=== PATIENT | male | born 1945 | race Caucasian/White ===

== ENCOUNTER 2017-08-15 02:38 | Inpatient (IN) | payer OTHER ==
[~2017-08-15] VITALS: Ht 180.3 cm; Wt 84.8 kg
[~2017-08-15 02:38] MED LIST: 8 HOUR650 MG PO; ASPIR 8181 MG PO; ASPIRIN EC81 M1 PO; COZAAR 100MG T100 MG PO; FLOMAX(MONOGRA0.4 MG PO; FLOMAX0.4 M1 PO; INCRUSE ELLI62.5 MCG INH; LEVOTHROID0.088 MG PO; LEVOTHYROXINE100 MC1 PO; LEVOTHYROXINE88 MCG PO; LOSARTAN POTAS100 M1 PO; METOPROLOL SUCC25 M1 PO; METOPROLOL SUCC25 MG PO; PERCOCET 325 MG1 TA2 PO; PRAVASTATIN SOD20 M2 PO; PRAVASTATIN20 MG PO; TUDORZA PR400 MCG/Ac INH; TYLENOL XSTR500 MG PO
--- NOTE | 2017-08-15 14:56 | Operative Report ---
Operative/Inv Procedure Report Surgery Date: 08/15/17 Name of Procedure: 1. Laparoscopic reversal of colostomy with partial colectomy 2. Laparoscopic mobilization of splenic flexure 3. Laparoscopic partial proctectomy 4. Rigid proctosigmoidoscopy for evaluation of anastomotic integrity Pre-Operative Diagnosis: Status post Martínez's procedure for perforated diverticulitis Post-Operative Diagnosis: Same Estimated Blood Loss: less than 50ml Surgeon/Marble Machine Tender: Dionte Gonzalez Jr., DO Anesthesia: general endotracheal tube, block Monitors: Per routine Implants: None Drains: ELSY drain in subcutaneous space at old colostomy site Specimens: 1. Colostomy 2. Stapled doughnuts 3. Portion of rectum Complications: None Condition: Good Operative Indication: This is a 71-year-old gentleman who is status post Martínez's procedure for perforated diverticulitis he is now completely recovered and presents for reversal of his colostomy Operative/Procedure Note Note: On the day before the patient's operation he did develop up at home including oral antibiotics and oral laxatives. He presented to [facility] where he was given oral and direct in the holding area. Was taken into the operating room given IV antibiotics and placed in supine position on the operating table. He underwent induction of general anesthesia and placement of endotracheal tube as well as a Hackett catheter. The anesthesia department did bilateral tap blocks The patient was converted to lithotomy position in Tate stirrups with the right arm tucked. The abdomen and perineum were prepped and draped in usual fashion. We used a Scott technique to enter the abdominal cavity. The Scott port was placed in the right upper quadrant, as I divided the external rectus fascia to purple 0 Vicryl tacking sutures were placed on either side of the incision. Then as I divided the peritoneum underneath regular 2-0 Vicryl was placed to tack both sides of the tissue. The port was placed. Patient had abundant adhesions of the small bowel to the midline and into the pelvis as well inter loop adhesions. A very lateral 5 millimeter port was placed on the right side. A 5 mm right lower quadrant port was placed. Next lysis of adhesions was performed for about the next hour all the midline adhesions between the bowel and the fascia were taken down and all the adhesions between the bowel in the pelvis were taken down. Next a 12 mm port was placed in the superior umbilical position and another 5 mm port was placed in the subxiphoid position. It appeared to me that the bowel would not reach the pelvis as this was a fairly high colostomy so the white line of Toldt was taken down and the splenic flexure was completely taken down laparoscopically using a combination of blunt dissection and vessel sealer. Once all this dissection had been completed the mode peritoneum was left down. Elliptical incision was performed around the colostomy and I dissected until it bowel was completely freed from the fascia. The distal 2 cm of the colon was then amputated by first clearing the mesentery with electrocautery and LigaSure device. I sharply divided the bowel and the specimen was removed from the field. Next the handsewn pursestring was performed with 2-0 Prolene. A 28 EEA stapler was chosen for the anastomosis. The anvil was placed into the lumen of the bowel and the pursestring was tied snugly around the PEG of the anvil. The bowel was reduced back into the abdominal cavity. The fascia was closed with 0 PDS suture and we reestablished pneumoperitoneum. Now the bowel could easily reach into the pelvis. We attempted to pass the sizers transanally but they could not reach the end of the pouch at the proximal portion of the pouch and become contracted and tethered in the pelvis. I tried to open the lumen by doing rigid sigmoidoscopy but this did not help. At this point I decided to mobilize and resect the upper portion of the rectum. Using the LigaSure I developed the posterior avascular plane of the rectum starting at the apex of the rectal pouch divided the rectal stalks both to the right to the left until I reached the area of desired transection. Mesentery was then cleared with the LigaSure. A laparoscopic SULMA purple 60 mm stapler was then used to divide the bowel. The specimen was set aside in the right lower quadrant. Next we will to easily pass the stapler to the end of the pouch the spike was advanced through the rectal wall. The 2 ends of the stapler were laparoscopically mated. The stapler was completely closed and allowed to settle for 30 seconds. The stapler was fired opened and retrieved. Next we filled the pelvis with sterile water occluded the colon above the anastomosis. I did a rigid sigmoidoscopy there was no leaking of bubbles at the anastomosis the anastomosis appeared sound without bleeding. At this point we inspected the abdominal cavity one last time for hemostasis everything appeared okay. A upper scopic Endo retrieval bag was placed through the supraumbilical 12 mm port. The rectal specimen was placed into this bag. The pneumoperitoneum was let down and this incision was extended to about 2 cm. We were able to extract bag with the specimen. Next the fascia at this incision was closed with 0 Vicryl suture. The Scott port in the right lower quadrant was closed in 2 layers. The inner layer was closed running 2-0 Vicryl. The outer fascia was closed with a figure of 8-0 Vicryl. All the lap scopic ports were then closed with subcuticular 4 Monocryl and skin glue. The colostomy site was pulse lavaged with 1 L sterile saline. A ELSY drain was placed into the base of the incision outside the fascia but under the skin. And the drain was brought out through separate stab incision. The drain was secured to the skin with a nylon suture. Skin was then closed with mattress nylon sutures. A sterile dressing was applied over this incision. At this point the procedure was concluded the patient was converted back to supine position. The patient tolerated the procedure well was exiting operating room and taken recovery in good condition. At the end of this operational needle sponges and measurements were accounted for. Discharge Disposition: Same Day Admissions
[2017-08-15 16:36] VITALS: BP 130/70
--- NOTE | 2017-08-15 18:15 | PN- General Surgery ---
Subjective Subjective: POST-OP NOTE Reports some dizziness. Not yet out of bed. Pain controlled after receiving iv dilaudid in pacu. He is ordered for clears as tolerated. Denies nausea. No shortness of breath. No chest pains. Objective Vital Signs and I&Os Vital Signs Date Time Temp Pulse Resp B/P B/P Pulse O2 O2 Flow FiO2 Mean Ox Delivery Rate 08/15 1636 97.6 66 18 130/70 93 Room Air Physical Exam: General - alert & oriented x 3. comfortable. no acute distress. Lungs - clear bilaterally. no w/r/r. Cardiac - s1s2. reg. Abdomen - soft. incisions approximated with skin glue. ELSY drain with serosang drainage. - stephen draining clear, yellow urine Extremities - warm bilaterally. no c/c/e. calves soft and nontender b/l. athrombics active. Current Medications: Current Medications Sig/Rachel Start time Last Medication Dose Route Stop Time Status Admin Acetaminophen 1,000 MG Q6H 08/15 1815 AC N/A 1 UNIT IV 08/16 1229 Acetaminophen 650 MG Q6P PRN 08/15 1645 DC PO Alvimopan 12 MG BID 08/15 2200 AC PO Alvimopan 12 MG ONCE 08/15 0000 DC PO 08/15 2359 Cefazolin Sodium 2 GM IQ8 08/15 1600 AC 08/15 N/A 1 UNIT IV 08/16 1559 1801 Dextrose/Sodium 1,000 ML Q13H 08/15 1645 AC 08/15 Chloride IV 1750 Fentanyl Citrate 250 MCG .STK-MED ONE 08/15 0955 DC IM 08/15 0956 Heparin Sodium 5,000 UNIT Q8 08/15 2200 AC (Porcine) SC Hydromorphone HCl 0.5 MG Q3P PRN 08/15 1645 AC IV Ketorolac 15 MG Q6-PRN PRN 08/15 1815 AC Tromethamine IV Levothyroxine Sodium 0.1 MG DAILY AC 08/16 0700 AC PO Losartan Potassium 100 MG DAILY 08/16 1000 AC PO Metoprolol Succinate 25 MG DAILY 08/16 1000 AC PO Metronidazole 500 MG IQ8 08/15 1600 AC N/A 1 UNIT IV 08/16 0059 Midazolam HCl 2 MG .STK-MED ONE 08/15 0956 DC IM 08/15 0957 Ondansetron HCl 4 MG Q6P PRN 08/15 1645 AC IV Oxycodone HCl 5 MG Q4 PRN 08/15 1515 AC PO Oxycodone HCl 10 MG Q4 PRN 08/15 1515 AC PO Pravastatin Sodium 10 MG DAILY 08/16 1000 AC PO Tamsulosin HCl 0.8 MG QPM 08/15 2200 AC PO Tiotropium [place] 1 PUF DAILY 08/16 1000 AC INH Assessment/Plan Assessment/Plan This 71 year old male with hx hypothyroidism, htn, hld, bph, copd, now POD#0 s/p laparoscopic reversal of colostomy with partial colectomy, laparoscopic mobilization of splenic flexure, laparoscopic partial proctectomy, and rigid proctosigmoidoscopy for evaluation of anastomotic integrity, for hx of hartmans procedure for perforated diverticulitis clears as tolerated iv tylenol / iv toradol prn pain control / iv dilaudid prn breakthrough pain entereg bid hep sc - dvt ppx delphine-operative abx d/c stephen in am f/u am labs TRC/IS monitor ELSY drain oob/ambulation home meds ordered will d/w Core Measures Venous Thromboembolism VTE Risk Factors Surgery No Mechanical VTE Prophylaxis d/t N/A MechProphylax Ordered No VTE Pharm Prophylaxis d/t NA PharmProphylax ordered
[2017-08-15 22:08] VITALS: BP 126/68
[2017-08-16 02:05] VITALS: BP 130/60
[2017-08-16 06:54] VITALS: BP 120/56
[2017-08-16 08:39] LABS: ABSOLUTE BASOPHIL COUNT 0 /CUMM (0.0-0.2); ABSOLUTE EOSINOPHIL COUNT 0 /CUMM (0.0-0.7); ABSOLUTE LYMPH COUNT 1.3 /CUMM (1.2-3.4); ABSOLUTE MONOCYTE COUNT 1.1 /CUMM (0.10-0.60); BASOPHIL % 0.2 % (0.0-2.0); EOSINOPHIL % 0 % (0-5); GRANULOCYTE % 78.3 % (42.2-75.2); HEMATOCRIT 31.2 % (42-52); MEAN CORPUSCULAR HGB 30.6 PG (27.0-31.0); MEAN CORPUSCULAR HGB CONC 34.5 G/DL (33.0-37.0); MEAN CORPUSCULAR VOLUME 88.8 FL (80.0-94.0); MEAN PLATELET VOLUME 8.4 FL (7.4-10.4); PLATELET COUNT 200 /CUMM (130-400); RBC DISTRIBUTION WIDTH 13.8 % (11.5-14.5); RED BLOOD CELL CT 3.52 /CUMM (4.70-6.10); WHITE BLOOD CELL COUNT 11.5 /CUMM (4.8-10.8)
--- NOTE | 2017-08-16 09:56 | PN- General Surgery ---
See Addendum Subjective Subjective: some abdominal pain, helped w meds. liliane clears but easily feels full. no n/v. no flatus, no bm. no cp/sob. no oob yet. +uo via stephen. Objective Vital Signs and I&Os Vital Signs Date Time Temp Pulse Resp B/P B/P Pulse O2 O2 Flow FiO2 Mean Ox Delivery Rate 08/16 0940 64 114/58 08/16 0939 64 114/58 08/16 0654 97.5 72 20 120/56 94 Room Air 08/16 0600 94 Room Air 08/16 0205 97.7 70 16 130/60 94 Room Air 08/16 0000 93 Room Air 08/15 2208 98.4 70 20 126/68 93 08/15 2200 Room Air 08/15 2036 75 120/60 08/15 1636 97.6 66 18 130/70 93 Room Air Intake & Output 08/16 1600 08/16 0800 08/16 0000 08/15 1600 08/15 0800 08/15 0000 Intake Total 850 1150 Output Total 1280 405 Balance -430 745 Intake, IV 750 450 Intake, Oral 100 700 Number 0 Bowel Movements Output, 5 5 Drainage Output, Urine 1275 400 Patient 188 lb Weight Weight Reported by Patient Measurement Method Physical Exam: gen- nad card- s1s2 rrr pulm- ctab abd- distended, ttp throughout, incisions dressed- cdi. nigel with minimal serosang output (5cc per shift), tubing patent. quiet bs ext- calves soft nt, alps on. uro- stephen w clear yellow urine Current Medications: Current Medications Sig/Rachel Start time Last Medication Dose Route Stop Time Status Admin Acetaminophen 1,000 MG Q6H 08/15 1815 AC 08/16 N/A 1 UNIT IV 08/16 1229 0601 Acetaminophen 650 MG Q6P PRN 08/15 1645 DC PO Alvimopan 12 MG BID 08/15 2200 AC 08/16 PO 0939 Alvimopan 12 MG ONCE 08/15 0000 DC PO 08/15 2359 Cefazolin Sodium 2 GM Q8H 08/16 0200 AC 08/16 N/A 1 UNIT IV 08/16 1029 0939 Cefazolin Sodium 2 GM IQ8 08/15 1600 DC 08/15 N/A 1 UNIT IV 08/16 1559 1801 Dextrose/Sodium 1,000 ML Q13H 08/15 1645 AC 08/16 Chloride IV 0800 Fentanyl Citrate 250 MCG .STK-MED ONE 08/15 0955 DC IM 08/15 0956 Heparin Sodium 5,000 UNIT Q8 08/15 2200 AC 08/16 (Porcine) SC 0614 Hydromorphone HCl 0.5 MG Q3P PRN 08/15 1645 AC IV Ketorolac 15 MG Q6-PRN PRN 08/15 1815 AC 08/16 Tromethamine IV 0939 Levothyroxine Sodium 0.1 MG DAILY AC 08/16 0700 AC 08/16 PO 0614 Losartan Potassium 100 MG DAILY 08/16 1000 AC 08/16 PO 0940 Metoprolol Succinate 25 MG DAILY 08/16 1000 AC 08/16 PO 0939 Metronidazole 500 MG Q8H 08/16 0300 DC 08/16 N/A 1 UNIT IV 08/16 0359 0345 Metronidazole 500 MG IQ8 08/15 1600 DC 08/15 N/A 1 UNIT IV 08/16 0059 1900 Midazolam HCl 2 MG .STK-MED ONE 08/15 0956 DC IM 08/15 0957 Ondansetron HCl 4 MG Q6P PRN 08/15 1645 AC IV Oxycodone HCl 5 MG Q4 PRN 08/15 1515 AC PO Oxycodone HCl 10 MG Q4 PRN 08/15 1515 AC PO Pravastatin Sodium 10 MG DAILY 08/16 1000 AC 08/16 PO 0940 Tamsulosin HCl 0.8 MG QPM 08/15 2200 AC 08/15 PO 2036 Tiotropium [place] 1 PUF DAILY 08/16 1000 AC 08/16 INH 0940 Results Last 48 Hours of Labs: Laboratory Tests 08/16 07 Chemistry Sodium (137 - 145 mmol/L) 139 Potassium (3.5 - 5.1 mmol/L) 3.9 Chloride (98 - 107 mmol/L) 104 Carbon Dioxide (22 - 30 mmol/L) 26 Anion Gap (5 - 16) 9 BUN (9 - 20 mg/dL) 13 Creatinine (0.7 - 1.2 mg/dL) 0.9 Estimated GFR (>60 ml/min) > 60 BUN/Creatinine Ratio (7 - 25 %) 14.4 Hematology CBC w Diff NO MAN DIFF REQ WBC (4.8 - 10.8 /CUMM) 11.5 H RBC (4.70 - 6.10 /CUMM) 3.52 L Hgb (14.0 - 18.0 G/DL) 10.8 L Hct (42 - 52 %) 31.2 L MCV (80.0 - 94.0 FL) 88.8 MCH (27.0 - 31.0 PG) 30.6 MCHC (33.0 - 37.0 G/DL) 34.5 RDW (11.5 - 14.5 %) 13.8 Plt Count (130 - 400 /CUMM) 200 MPV (7.4 - 10.4 FL) 8.4 Gran % (42.2 - 75.2 %) 78.3 H Lymphocytes % (20.5 - 51.1 %) 11.7 L Monocytes % (1.7 - 9.3 %) 9.8 H Eosinophils % (0 - 5 %) 0 Basophils % (0.0 - 2.0 %) 0.2 Absolute Granulocytes (1.4 - 6.5 /CUMM) 9.0 H Absolute Lymphocytes (1.2 - 3.4 /CUMM) 1.3 Absolute Monocytes (0.10 - 0.60 /CUMM) 1.1 H Absolute Eosinophils (0.0 - 0.7 /CUMM) 0 Absolute Basophils (0.0 - 0.2 /CUMM) 0 Assessment/Plan Assessment/Plan A- 71M POD1 sp colostomy reversal ( sp hartmanns for diverticulitis), with postop pain and no bowel function, otherwise stable. P- oob to chair, ambulate as tolerated. ist hep sq, alps prn pain meds clear liquids as tolerated, await bowel fxn cont ivf dc stephen now, cont flomax cont entereg until bm postop abx x23hr nigel to self suction will dw attending Core Measures Venous Thromboembolism VTE Risk Factors Surgery No Mechanical VTE Prophylaxis d/t N/A MechProphylax Ordered No VTE Pharm Prophylaxis d/t NA PharmProphylax ordered
[2017-08-16 12:00] VITALS: BP 118/62
[2017-08-16 22:01] VITALS: BP 150/60
--- NOTE | 2017-08-17 06:36 | Patient Discharge Instructions ---
Discharge Instructions General Discharge Information You were seen/treated for: s/p Martínez's procedure for perforated diverticulitis You had these procedures: Surgery Date: 08/15/17 Name of Procedure: 1. Laparoscopic reversal of colostomy with partial colectomy 2. Laparoscopic mobilization of splenic flexure 3. Laparoscopic partial proctectomy 4. Rigid proctosigmoidoscopy for evaluation of anastomotic integrity Watch for these problems: fever>101.3, increased pain, redness/swelling/drainage, dizziness, shortness of breath, chest pains No bath, but you may shower: Yes Diet Continue normal diet: Yes Recommended Diet: Low Residue Activity Full Activity/No Limits: No Activity Self Limited: Yes Pounds, do NOT lift more than: 10 Acute Coronary Syndrome Inclusion Criteria At DC or during hospital stay patient has or had the following: ACS DIAGNOSIS No Discharge Core Measures Meds if any: Prescribed or Continued at Discharge Meds if any: NOT Prescribed or Continued at Discharge Congestive Heart Failure Inclusion Criteria At DC or during hospital stay patient has or had the following: CHF DIAGNOSIS No Discharge Core Measures Meds if any: Prescribed or Continued at Discharge Meds if any: NOT Prescribed or Continued at Discharge Cerebrovascular accident Inclusion Criteria At DC or during hospital stay patient has or had the following: CVA/TIA Diagnosis No Discharge Core Measures Meds if any: Prescribed or Continued at Discharge Meds if any: NOT Prescribed or Continued at Discharge Venous thromboembolism Inclusion Criteria VTE Diagnosis No VTE Type NONE VTE Confirmed by (Test) NONE Discharge Core Measures - Per Current guidelines, there needs to be overlap - treatment for the first 5 days of Warfarin therapy. - If discharged on Warfarin prior to 5 days of - overlap therapy, the patient will need to be - assessed for post discharge needs including - *Post discharge parental anticoagulation - *Warfarin and/or parental anticoagulation education - *Follow up date to check INR post discharge At least 5 days overlap therapy as Inpatient No Meds if any: Prescribed or Continued at Discharge Note: Overlap Therapy is Warfarin and Anticoagulant Meds if any: NOT Prescribed or Continued at Discharge
[2017-08-17] MEDS ORDERED: OXYCODONE HCL5 M1 PO (06:43)
[2017-08-17] MEDS ORDERED: COLACE100 M1 PO (06:43)
--- NOTE | 2017-08-17 06:54 | Surgical Discharge Summary ---
Visit Information Visit Dates Admission Date: 08/15/17 Discharge Date: 08/20/17 History of Present Illness Chief Complaint: s/p Martínez's procedure for perforated diverticulitis Medical History Blood Transfusion Hx: No Neurological: NONE EENT: NONE Cardiovascular: AFIB, HTN, HIGH CHOLESTERAL Respiratory: HX SPONTANEOUS PNEUMOTHORAX Gastrointestinal: GERD Hepatic: NONE Renal: NONE Musculoskeletal: NONE Psychiatric: NONE Endocrine: hypothyroidism Blood Disorders: NONE Cancer(s): NONE GUIDEMAN/Reproductive: NONE History of MRSA: No History of VRE: No History of CDIFF: No Isolation History: Standard Surgical History Pertinent Surgical History: HARTMANNS, COLOSTOMY AAA REPAIR BILATERAL SHOULDER SX Psychosocial History Who Do You Live With? Spouse Services at Home: None What is Your Primary Language? Greenlandic Review of Systems: see h&p Hospital Course Course Attending Physician: Dionte Gonzalez Jr., DO Primary Care Physician: Josefina GRIFFIN,Lds Hospital Course: Electively scheduled laparoscopic reversal of colostomy with partial colectomy, mobilization of splenic flexure, partial proctectomy, and rigid proctosigmoidoscopy for evaluation of anastomotic integrity on 08/15/17 by for history of s/p Martínez's procedure for perforated diverticulitis. Entereg was continued post-operatively to reduce narcotic related effects on bowel recovery. Pain medication transitioned from iv to oral. Diet advancement with return of bowel function, as tolerated. Activity and mobilization encouraged, as tolerated. ELSY drain left at the previous colostomy site left in place from surgery for continued drainage through hospitalization, with removal of this prior to discharge home. Complications: None Allergies: Coded Allergies: NO KNOWN ALLERGIES (02/08/15) Disposition Summary Disposition Principal Diagnosis: status post Martínez's procedure for perforated diverticulitis Additional Diagnosis: same as above, s/p Surgery Date: 08/15/17 Name of Procedure: 1. Laparoscopic reversal of colostomy with partial colectomy 2. Laparoscopic mobilization of splenic flexure 3. Laparoscopic partial proctectomy 4. Rigid proctosigmoidoscopy for evaluation of anastomotic integrity Discharge Disposition: home health services Discharge Instructions General Discharge Information Code Status: Full Code Patient's Diet: low residue diet, as tolerated Patient's Activity: as tolerated. no heavy lifting >10 lbs until further directed. Follow-Up Instructions/Appts: 7-[address]Aversa Medications at Discharge Discharge Medications: Continue taking these medications: Tamsulosin HCl (Flomax) 0.4 MG CAP.ER.24H 2 Capsule ORAL Every night Qty = 90 Acetaminophen (8 Hour) 650 MG TABLET.ER 2 Tablet ORAL TWICE DAILY Losartan Potassium (Losartan Potassium) 100 MG TABLET 1 Tablet ORAL DAILY Qty = 90 Pravastatin Sodium (Pravastatin Sodium) 20 MG TABLET 0.5 Tablet ORAL Every other day Qty = 45 Levothyroxine Sodium (Levothyroxine Sodium) 100 MCG TABLET 1 Tablet ORAL DAILY Metoprolol Succinate (Metoprolol Succinate) 25 MG TAB 1 Tablet ORAL DAILY Qty = 90 Umeclidinium [place] (Incruse Ellipta) 62.5 MCG/ACTUATION BLST.W.DEV 1 PUFF Inhale through mouth Every Morning Aspirin (Ecotrin*) 81 MG TABLET.DR 1 Tablet ORAL DAILY Start taking the following new medications: Oxycodone HCl (Oxycodone HCl) 5 MG TABLET 1-2 Tablet ORAL EVERY 4-6 HOURS NEEDED as needed for pain control Qty = 36 No Refills Instructions: tylenol may be used in combination or alternatively Docusate Sodium (Colace) 100 MG CAPSULE 1 Capsule ORAL TWICE DAILY as needed for stool softener Qty = 60 No Refills Copies To: Josefina GRIFFIN,Dru
[2017-08-17 07:06] VITALS: BP 170/86
[2017-08-17 08:18] LABS: ABSOLUTE BASOPHIL COUNT 0 /CUMM (0.0-0.2); ABSOLUTE EOSINOPHIL COUNT 0 /CUMM (0.0-0.7); ABSOLUTE GRANULOCYTE CT 7.2 /CUMM (1.4-6.5); ABSOLUTE LYMPH COUNT 1.1 /CUMM (1.2-3.4); ABSOLUTE MONOCYTE COUNT 0.5 /CUMM (0.10-0.60); BASOPHIL % 0.2 % (0.0-2.0); EOSINOPHIL % 0.4 % (0-5); GRANULOCYTE % 80.9 % (42.2-75.2); MEAN CORPUSCULAR HGB 29.9 PG (27.0-31.0); MEAN CORPUSCULAR HGB CONC 33.7 G/DL (33.0-37.0); MEAN CORPUSCULAR VOLUME 88.8 FL (80.0-94.0); PLATELET COUNT 204 /CUMM (130-400); RBC DISTRIBUTION WIDTH 13.6 % (11.5-14.5); WHITE BLOOD CELL COUNT 8.9 /CUMM (4.8-10.8)
--- NOTE | 2017-08-17 09:33 | PN- General Surgery ---
Subjective Subjective: Reports pain not always well controlled. Taking sips. No nausea. Some hiccuping. No flatus/bm yet. States he walked 3 times yesterday. No dizziness. No shortness of breath. No chest pains. Objective Vital Signs and I&Os Vital Signs Date Time Temp Pulse Resp B/P B/P Pulse O2 O2 Flow FiO2 Mean Ox Delivery Rate 08/17 0856 98.2 79 20 170/86 08/17 0856 98.2 79 20 170/86 18 0706 98.2 79 20 170/86 92 Room Air 08/17 0600 92 Room Air 08/17 0000 92 Room Air 08/16 2201 98.4 73 20 150/60 92 08/16 2200 Room Air 08/16 2106 72 150/60 08/16 1400 94 Room Air 08/16 1200 97.8 69 18 118/62 94 Room Air Intake & Output 08/17 1600 08/17 0800 08/17 0000 08/16 1600 08/16 0800 08/16 0000 Intake Total 650 1400 0818 477 3531 Output Total 1185 2673 749 3467 405 Balance -535 45 730 -430 745 Intake, IV 600 600 600 750 450 Intake, Oral 50 800 480 100 700 Number 0 0 0 Bowel Movements Output, 10 5 5 5 Drainage Output, Urine 1175 8490 563 8971 400 Patient 188 lb Weight Weight Reported by Patient Measurement Method Physical Exam: General - alert & oriented. comfortable. no acute distress. Lungs - clear bilaterally. no w/r/r. Cardiac - s1s2. reg. Abdomen - softly distended. delphine-incisional tenderness. ELYS drain with serous drainage. Extremities - warm bilaterally. no c/c/e. calves soft and nontender b/l Current Medications: Current Medications Sig/Rachel Start time Last Medication Dose Route Stop Time Status Admin Acetaminophen 1,000 MG Q6H 08/15 1815 MI 08/16 N/A 1 UNIT IV 08/16 1229 0601 Alvimopan 12 MG BID 08/15 220 08/17 PO 0856 Cefazolin Sodium 2 GM Q8H 08/16 0200 MI 08/16 N/A 1 UNIT IV 08/16 1029 0939 Dextrose/Sodium 1,000 ML Q13H 08/15 1645 08/16 Chloride IV 2106 Heparin Sodium 5,000 UNIT Q8 08/15 2200 AC 08/17 (Porcine) SC 0614 Hydromorphone HCl 1 MG Q3 PRN 08/17 0932 AC IV Hydromorphone HCl 0.5 MG Q3P PRN 08/15 1645 DC 08/17 IV 0811 Ketorolac 15 MG .STK-MED ONE 08/16 1558 DC Tromethamine IM 08/16 1559 Ketorolac 15 MG Q6-PRN PRN 08/15 1815 AC 08/17 Tromethamine IV 0806 Levothyroxine Sodium 0.1 MG DAILY AC 08/16 0700 AC 08/17 PO 0613 Losartan Potassium 100 MG DAILY 08/16 1000 AC 08/17 PO 0856 Metoprolol Succinate 25 MG DAILY 08/16 1000 AC 08/17 PO 0856 Ondansetron HCl 4 MG Q6P PRN 08/15 1645 AC IV Oxycodone HCl 5 MG Q4 PRN 08/15 1515 AC PO Oxycodone HCl 10 MG Q4 PRN 08/15 1515 AC 08/16 PO 2109 Pravastatin Sodium 10 MG DAILY 08/16 1000 AC 08/17 PO 0856 Tamsulosin HCl 0.8 MG QPM 08/15 2200 AC 08/16 PO 2106 Tiotropium [place] 1 PUF DAILY 08/16 1000 AC 08/17 INH 0857 Results Last 48 Hours of Labs: Laboratory Tests 08/17 08/16 0745 0717 Chemistry Sodium (137 - 145 mmol/L) 139 139 Potassium (3.5 - 5.1 mmol/L) 4.0 3.9 Chloride (98 - 107 mmol/L) 100 104 Carbon Dioxide (22 - 30 mmol/L) 29 26 Anion Gap (5 - 16) 10 9 BUN (9 - 20 mg/dL) 10 13 Creatinine (0.7 - 1.2 mg/dL) 0.8 0.9 Estimated GFR (>60 ml/min) > 60 > 60 BUN/Creatinine Ratio (7 - 25 %) 12.5 14.4 Phosphorus (2.5 - 4.5 mg/dL) 3.2 Magnesium (1.6 - 2.3 mg/dL) 1.6 Hematology CBC w Diff NO MAN DIFF REQ NO MAN DIFF REQ WBC (4.8 - 10.8 /CUMM) 8.9 11.5 H RBC (4.70 - 6.10 /CUMM) 3.60 L 3.52 L Hgb (14.0 - 18.0 G/DL) 10.8 L 10.8 L Hct (42 - 52 %) 32.0 L 31.2 L MCV (80.0 - 94.0 FL) 88.8 88.8 MCH (27.0 - 31.0 PG) 29.9 30.6 MCHC (33.0 - 37.0 G/DL) 33.7 34.5 RDW (11.5 - 14.5 %) 13.6 13.8 Plt Count (130 - 400 /CUMM) 204 200 MPV (7.4 - 10.4 FL) 8.0 8.4 Gran % (42.2 - 75.2 %) 80.9 H 78.3 H Lymphocytes % (20.5 - 51.1 %) 12.4 L 11.7 L Monocytes % (1.7 - 9.3 %) 6.1 9.8 H Eosinophils % (0 - 5 %) 0.4 0 Basophils % (0.0 - 2.0 %) 0.2 0.2 Absolute Granulocytes (1.4 - 6.5 /CUMM) 7.2 H 9.0 H Absolute Lymphocytes (1.2 - 3.4 /CUMM) 1.1 L 1.3 Absolute Monocytes (0.10 - 0.60 /CUMM) 0.5 1.1 H Absolute Eosinophils (0.0 - 0.7 /CUMM) 0 0 Absolute Basophils (0.0 - 0.2 /CUMM) 0 0 Assessment/Plan Assessment/Plan This 71 year old male with hx hypothyroidism, htn, hld, bph, copd, now POD#2 s/p laparoscopic reversal of colostomy with partial colectomy, laparoscopic mobilization of splenic flexure, laparoscopic partial proctectomy, and rigid proctosigmoidoscopy for evaluation of anastomotic integrity, for hx of hartmans procedure for perforated diverticulitis clears as tolerated encouraged out of bed / ambulation will hold toradol for now (he had an episode of bleeding per rectum when out of bed this morning) continue hep sc - dvt ppx will increase iv dilaudid for breakthrough pain continue entereg f/u labs abdominal binder as desired for comfort ELSY drain in place d/w Core Measures Venous Thromboembolism VTE Risk Factors Surgery No Mechanical VTE Prophylaxis d/t N/A MechProphylax Ordered No VTE Pharm Prophylaxis d/t NA PharmProphylax ordered
[2017-08-17 09:52] VITALS: BP 152/90
--- NOTE | 2017-08-17 10:02 | PN- General Surgery ---
Surgical Brief Attending Note Brief Attending Note: Patient still with no flatus Pain his chief complaint no different than yesterday Had small amount of bright red blood dripping per anus this morning Remains AVSS Gen. distress Abdomen softly distended and tympanitic, incisions clean dry and intact, ELSY serous mild generalized tenderness no rebound Impression: Await bowel function Plan: Hold Toradol but continue subcutaneous heparin Continue IV fluids and clear liquid diet only Add Valium 3 times a day when necessary abdominal pain Repeat labs tomorrow morning
[2017-08-17 14:42] VITALS: BP 120/80
[2017-08-17 21:43] VITALS: BP 150/76
[2017-08-18 06:44] VITALS: BP 142/62
--- NOTE | 2017-08-18 07:21 | PN- General Surgery ---
Surgical Brief Attending Note Brief Attending Note: Pt states pain somewhat improved from yesterday Still no flatus or BM Patient remains AVSS Abdomen is softly distended Labs are pending Impression: Postoperative ileus Plan: Continue IV fluids Do not advance diet Ambulate
[2017-08-18 08:31] LABS: ABSOLUTE BASOPHIL COUNT 0 /CUMM (0.0-0.2); ABSOLUTE EOSINOPHIL COUNT 0.2 /CUMM (0.0-0.7); ABSOLUTE GRANULOCYTE CT 6.6 /CUMM (1.4-6.5); ABSOLUTE LYMPH COUNT 1.2 /CUMM (1.2-3.4); ABSOLUTE MONOCYTE COUNT 0.6 /CUMM (0.10-0.60); BASOPHIL % 0.3 % (0.0-2.0); EOSINOPHIL % 2.4 % (0-5); GRANULOCYTE % 76.6 % (42.2-75.2); HEMATOCRIT 31.6 % (42-52); MEAN CORPUSCULAR HGB 30.6 PG (27.0-31.0); MEAN CORPUSCULAR HGB CONC 34.4 G/DL (33.0-37.0); MEAN CORPUSCULAR VOLUME 89.1 FL (80.0-94.0); MEAN PLATELET VOLUME 8.3 FL (7.4-10.4); PLATELET COUNT 193 /CUMM (130-400); RBC DISTRIBUTION WIDTH 13.9 % (11.5-14.5); RED BLOOD CELL CT 3.55 /CUMM (4.70-6.10); WHITE BLOOD CELL COUNT 8.7 /CUMM (4.8-10.8)
--- NOTE | 2017-08-18 16:55 | Admission Core Measures ---
Acute Coronary Syndrome (CM) ACS Core Measures Acute Coronary Syndrome Diagnosis No Congestive Heart Failure (NEW) CHF Core Measures Congestive Heart Failure Diagnosis No Cerebrovascular Accident (NEW) CVA Core Measures CVA/TIA Diagnosis No Venous Thromboembolism VTE Core Himanshu (View Protocol) VTE Risk Factors Surgery No Mechanical VTE Prophylaxis d/t N/A MechProphylax Ordered No VTE Pharm Prophylaxis d/t NA PharmProphylax ordered Problem List As ranked by this Provider includes Assessment & Plan 1. Status post colostomy takedown HOME MEDS Home Med List Acetaminophen (8 Hour) 650 MG TABLET.ER 2 TAB PO BID PAIN (Reported) Aspirin (Ecotrin*) 81 MG TABLET.DR 1 TAB PO DAILY HEART/BLOOD (Reported) Docusate Sodium (Colace) 100 MG CAPSULE 1 CAP PO BID PRN stool softener Levothyroxine Sodium 100 MCG TABLET 1 TAB PO DAILY THYROID (Reported) Losartan Potassium 100 MG TABLET 1 TAB PO DAILY BP (Reported) Metoprolol Succinate 25 MG TAB 1 TAB PO DAILY HEART/BP (Reported) Oxycodone HCl 5 MG TABLET 1-2 TAB PO Q4-6 PRN PRN pain control Pravastatin Sodium 20 MG TABLET 0.5 TAB PO EOD CHOLESTEROL (Reported) Tamsulosin HCl (Flomax) 0.4 MG CAP.ER.24H 2 CAP PO QPM PROSTATE (Reported) Umeclidinium [place] (Incruse Ellipta) 62.5 MCG/ACTUATION BLST.W.DEV 1 PUFF INH QAM COPD (Reported)
[2017-08-18 22:50] VITALS: BP 152/80
[2017-08-19 07:34] VITALS: BP 160/78
--- NOTE | 2017-08-19 08:30 | PN- General Surgery ---
Subjective Subjective: Patient reports passing small amounts of flatus, that began approximately 12 hours ago. He states that he moved a very small amout of his bowels, "just a little piece". He denies blood per rectum, states that his previous episode has resolved. He denies nausea or vomitting. He denies chest pain. He states that he has COPD and feels occasional SOB but not a major variation from his baseline. He has been oob ambulating. He anticipates more ambulation after breakfast. Objective Vital Signs and I&Os Vital Signs Date Time Temp Pulse Resp B/P B/P Pulse O2 O2 Flow FiO2 Mean Ox Delivery Rate 08/19 0742 97.7 60 20 160/78 08/19 0742 97.7 60 20 160/78 08/19 0734 97.7 60 20 160/78 94 Room Air 08/19 0600 98 Room Air 08/18 2250 98.4 68 20 152/80 95 Room Air 08/18 2200 98 Room Air 08/18 2103 98.0 72 18 142/62 Intake & Output 08/19 1600 08/19 0800 08/19 0000 08/18 1600 08/18 0800 08/18 0000 Intake Total 803 808 4176 750 1300 Output Total 976 597 9188 730 205 Balance -210 400 -441 41 8384 Intake, IV 600 300 600 600 600 Intake, Oral 400 600 150 700 Number 1 0 Bowel Movements Output, 10 5 5 Drainage Output, Urine 630 680 2214 725 200 Patient 187 lb Weight Physical Exam: General: Alert and oriented x3, no acute distress Cardiac: RRR, s1s2 Pulm: CTA bilaterally, no wheezing or rhonchi. Non-labored respiratory effort. On room air. Abdomen: Softly distended. ELSY holding suction, small amount of serosanguinous drainage. Dressings dry and intact with old scant drainage on main laparotomy dsg. Extremities: Moves all extremities, distal sensation intact. Skin warm and well perfused. DP pulses palpable bilaterally. Bilateral calves soft and non- tender. Assessment/Plan Assessment/Plan This is a 71 year old, POD 4 s/p reversal lap hartmans. Post op ileus -Incentive spirometry encouraged, will obtain cxr if sob worsens -OOB ambulation encouraged -Continue clears and entereg for now, abdomen remaining slightly distended, will consider advancing diet with increased flatus and bowel movement -Will continue IV fluids, will check lytes daily while on iv fluids, following magnesium repletion, will watch K as it is trending down (3.7 yesterday) -Continue hep sub q for dvt ppx -Continue current pain regimen, will attempt to wean off of iv for breakthrough pain Will discuss with Dr. Gonzalez Core Measures Venous Thromboembolism VTE Risk Factors Surgery No Mechanical VTE Prophylaxis d/t N/A MechProphylax Ordered No VTE Pharm Prophylaxis d/t NA PharmProphylax ordered
--- NOTE | 2017-08-19 13:04 | PN- General Surgery ---
See Addendum Subjective Subjective: FEELING MUCH BETTER AMBULATING WITH DAUGHTER LESS BLOATING TODAY TOLERATING CLEAR DIET BM X2 Objective Vital Signs and I&Os Vital Signs Date Time Temp Pulse Resp B/P B/P Pulse O2 O2 Flow FiO2 Mean Ox Delivery Rate 08/19 0800 97 08/19 0742 97.7 60 20 160/78 08/19 0742 97.7 60 20 160/78 08/19 0734 97.7 60 20 160/78 94 Room Air 08/19 0600 98 Room Air 08/18 2250 98.4 68 20 152/80 95 Room Air 08/18 2200 98 Room Air 08/18 2103 98.0 72 18 142/62 Intake & Output 08/19 1600 08/19 0800 08/19 0000 08/18 1600 08/18 0800 08/18 0000 Intake Total 044 938 0813 750 1300 Output Total 500 947 669 3648 730 205 Balance -500 -210 400 -943 77 7916 Intake, IV 600 300 600 600 600 Intake, Oral 400 600 150 700 Number 1 0 Bowel Movements Output, 10 5 5 Drainage Output, Urine 500 980 115 2558 725 200 Patient 187 lb Weight Physical Exam: ABDA: SOFT, +BS LESS DISTENDED TODAY MINIMAL PAIN TO PALP Assessment/Plan Assessment/Plan SURGICALLY IMPROVING PLAN DISCUSSED CASE WITH DR DAIGLE D/C ENTEREG ADVANCE DIET TO FULL LIQUID D/C IVF OOB/AMBULATE Core Measures Venous Thromboembolism VTE Risk Factors Surgery No Mechanical VTE Prophylaxis d/t N/A MechProphylax Ordered No VTE Pharm Prophylaxis d/t NA PharmProphylax ordered
[2017-08-19 14:02] VITALS: BP 140/70
[2017-08-19 22:32] VITALS: BP 124/70
[2017-08-20 06:47] VITALS: BP 140/72
--- NOTE | 2017-08-20 07:44 | PN- General Surgery ---
Subjective Subjective: feeling better, bm early this am. liliane fulls, would like fulls again for bfast. +oob, ambulating. no cp/sob/n/v. belching improved. +flatus Objective Vital Signs and I&Os Vital Signs Date Time Temp Pulse Resp B/P B/P Pulse O2 O2 Flow FiO2 Mean Ox Delivery Rate 08/20 0647 97.7 71 20 140/72 93 Room Air 08/20 0600 Room Air 08/19 2232 98.3 69 20 124/70 94 08/19 2200 96 Room Air 08/19 2112 74 130/78 08/19 1600 97 Room Air 08/19 1402 98.0 95 20 140/70 95 Intake & Output 08/20 1600 08/20 0800 08/20 0000 08/19 1600 08/19 0800 08/19 0000 Intake Total 400 600 700 Output Total 475 5 500 810 300 Balance -75 -5 -500 -210 400 Intake, IV 600 300 Intake, Oral 400 400 Output, 5 10 Drainage Output, Urine 475 500 800 300 Patient 187 lb Weight Physical Exam: gen- nad card- s1s2 rrr pulm- ctab abd- distended, softer, incisions cdi, some skin tears from tape llq, +bs ext- calves soft nt bl, no edema Assessment/Plan Assessment/Plan A- POD5 sp hartmanns reversal, bowel fxn returning, stable P- prn pain meds hep sq, alps home meds likely LR diet for lunch OOB, ambulate DC planning will dw attending Core Measures Venous Thromboembolism VTE Risk Factors Surgery No Mechanical VTE Prophylaxis d/t N/A MechProphylax Ordered No VTE Pharm Prophylaxis d/t NA PharmProphylax ordered
--- NOTE | 2017-08-20 08:44 | PN- General Surgery ---
Surgical Brief Attending Note Brief Attending Note: Pt tolerating fulls and having BM Advance to low fiber diet Okay to shower D/c home today I will send pain Rx to his pharmacey electronically
[2017-08-20] MEDS ORDERED: OXYCODONE HCL5 M1 PO (13:13)
[2017-08-20] MEDS ORDERED: COLACE100 M1 PO (13:13)
[2017-08-20 14:22] VITALS: BP 120/72
[2017-08-20] MEDS ORDERED: VALIUM2 M1 PO (14:24)
== END 2017-08-20 14:52 | DRG 330 ==
LOC: SDA 02:38 → 2NA 02:38 → SDA 07:00 → STS 07:00 → EDSTATUS 07:00 → ENRESERV 15:13 → ENTRNSPT 16:11 → EDTRNSPT 16:17 → EDTRNSPTSTS 16:17 → 2NA 16:24 → CMPTRNSPT 16:43 → ENPENDDIS 08-20 09:19 → 2NA 08-20 14:52
PROVIDERS: Physician Assistant; Physician Assistant Surgical
PROC: 0DSN4ZZ Reposition Sigmoid Colon, Percutaneous Endoscopic Approach (ICD-10-PCS; principal; 2017-08-15)
PROC: 0DBP4ZZ Excision of Rectum, Percutaneous Endoscopic Approach (ICD-10-PCS; principal; 2017-08-15)
PROC: 0DBE4ZZ Excision of Large Intestine, Percutaneous Endoscopic Approach (ICD-10-PCS; principal; 2017-08-15)
PROC: 3E0T3BZ Introduction of Anesthetic Agent into Peripheral Nerves and Plexi, Percutaneous Approach (ICD-10-PCS; 2017-08-15)
DX: Z43.3 Encounter for attention to colostomy (principal); K56.7 Ileus, unspecified; I48.2 Chronic atrial fibrillation; J44.9 Chronic obstructive pulmonary disease, unspecified; I10 Essential (primary) hypertension; K21.9 Gastro-esophageal reflux disease without esophagitis; E03.9 Hypothyroidism, unspecified; G47.33 Obstructive sleep apnea (adult) (pediatric)
CPT/HCPCS: 2NASP; 36415; 36592; 82436; 87086; J0131; J0690; J1170; J1644; J2405; J3490; J7042